=== PATIENT | male | born 1985 | race Caucasian/White ===

== ENCOUNTER 2016-12-10 22:26 | Emergency (ER) | payer OTHER ==
[2016-12-10 23:13] LABS: HEMOGLOBIN 17.3 gm/dl (14.0-17.5); RED BLOOD COUNT 5.47 M/UL (4.20-5.50); WHITE BLOOD COUNT 9.6 K/UL (4.5-11.0)
[2016-12-10 23:35] LABS: BUN/CREATININE RATIO 18 (0-10)
== END 2016-12-11 04:41 | disposition home or self-care (01) ==
LOC: ER1 22:26
PROVIDERS: Family Medicine
DX: R07.9 Chest pain, unspecified (principal); R00.0 Tachycardia, unspecified; F17.200 Nicotine dependence, unspecified, uncomplicated
CPT/HCPCS: 36415; 71010; 80053; 82550; 82553; 83874; 84484; 85025; 85379; 93005; 96360; 99285